=== PATIENT | male | born 1965 | race African-American/Black ===

== ENCOUNTER 2017-03-28 05:09 | Inpatient (IN) | payer SELFPAY ==
[~2017-03-28] VITALS: Ht 175.3 cm; Wt 91.6 kg
[2017-03-28 07:01] LABS: INR 1.1; PROTHROMBIN TIME 11.3 sec
[2017-03-28 07:05] LABS: BASOPHILS % 0.9 % (0.0-2.0); CARBON DIOXIDE 29 mEq/L (21-32); CHLORIDE 109 mEq/L (98-107); EOSINOPHILS % 1.9 % (0.0-5.0); HEMATOCRIT. 44.3 % (42.0-52.0); HEMOGLOBIN. 14.5 g/dL (14.0-18.0); LYMPHOCYTES % 33.9 % (20.0-50.0); MEAN CORPUSCULAR HEMOGLOBIN 28.7 pg (28.0-32.0); MEAN CORPUSCULAR VOLUME 87.8 fL (80.0-94.0); MEAN PLATELET VOLUME 8.4 fl (7.4-10.4); MONOCYTES % 6.3 % (2.0-8.0); PLATELET 207 x1000/uL (130-400); RED BLOOD CELL COUNT 5.04 mill/uL (4.7-6.1); RED CELL DISTRIBUTION WIDTH 14.6 % (11.6-14.6)
[2017-03-28 07:10] LABS: TROPONIN I 0.09 ng/mL (0.00-0.04)
[2017-03-28] MEDS ORDERED: FUROSEMIDE 40MG/4ML VIAL IVP ONE (07:15)
[2017-03-28] MEDS ORDERED: NITROGLYCERIN OINT 1GM/INCH UDPKT TD ONE (07:15)
[2017-03-28] MEDS ORDERED: ASPIRIN 325MG TABLET PO ONE (08:00)
[2017-03-28] MEDS ORDERED: MAGNESIUM HYDROXIDE 400MG/5ML 30ML UDC PO PRN (09:00)
[2017-03-28] MEDS ORDERED: MAGNESIUM/ALUMINUM HYDROXIDE/SIMETHICONE 30ML UDC PO PRN (09:00)
[2017-03-28] MEDS ORDERED: ENOXAPARIN 40MG/0.4ML SYR SUBCUT SCH (09:00)
[2017-03-28] MEDS ORDERED: ONDANSETRON HCL 4MG/2ML VIAL IV PRN (09:00)
[2017-03-28] MEDS ORDERED: DIPHENHYDRAMINE 50MG/ML VIAL IV PRN (09:00)
[2017-03-28] MEDS ORDERED: ACETAMINOPHEN 325MG TABLET PO PRN (09:00)
[2017-03-28] MEDS ORDERED: CLONIDINE 0.1MG TABLET PO PRN (09:00)
[2017-03-28] MEDS ORDERED: IPRATROPIUM/ALBUTEROL 0.5-3(2.5)MG/3ML NEB INH PRN (09:00)
[2017-03-28 12:00] VITALS: BP 134/109
[2017-03-28 12:05] VITALS: BP 134/109
[2017-03-28] MEDS ORDERED: BENAZEPRIL 20MG TABLET PO SCH (13:00)
[2017-03-28] MEDS: POTASSIUM CHLORIDE 20MEQ TABLET SR PO SCH ×2 (13:47→20:35)
[2017-03-28] MEDS: SODIUM CHLORIDE 0.9% INJ 3ML FLUSH IVF SCH ×2 (13:48→20:35)
[2017-03-28] MEDS: ENOXAPARIN 30MG/0.3ML SYR SUBCUT SCH ×2 (13:48→23:49)
[2017-03-28] MEDS: AMLODIPINE 10MG TABLET PO SCH (13:48)
[2017-03-28] MEDS ORDERED: POTASSIUM CHLORIDE 20MEQ TABLET SR PO NR (15:15)
[2017-03-28 16:00] VITALS: BP 139/112
[2017-03-28] MEDS: FUROSEMIDE 40MG/4ML VIAL IVP SCH (16:26)
[2017-03-28] MEDS: DOCUSATE SODIUM 100MG CAPSULE PO SCH (16:26)
[2017-03-28 19:54] LABS: *AMPHETAMINES SCREEN URINE NEGATIVE (NEGATIVE); *BARBITURATES SCREEN URINE NEGATIVE (NEGATIVE); *BENZODIAZEPINES SCREEN URINE NEGATIVE (NEGATIVE); *COCAINE SCREEN URINE NEGATIVE (NEGATIVE); CANNABINOID URINE SCREEN NEGATIVE (NEGATIVE); METHADONE URINE SCREEN NEGATIVE (NEGATIVE); OPIATES URINE SCREEN NEGATIVE (NEGATIVE); PHENCYCLIDINE URINE SCREEN NEGATIVE (NEGATIVE)
[2017-03-28 20:00] VITALS: BP 140/104
[2017-03-28] MEDS: LOSARTAN POTASSIUM 25 MG TABLET PO SCH (20:35)
[2017-03-29] VITALS: BP_SYST 126; BP_SYST 130; BP_DIAS 107; BP_DIAS 95
[2017-03-29 04:00] VITALS: BP_SYST 126; BP_SYST 146; BP_DIAS 109; BP_DIAS 89
[2017-03-29] MEDS: SODIUM CHLORIDE 0.9% INJ 3ML FLUSH IVF SCH ×3 (06:00→21:54)
[2017-03-29 06:37] LABS: CARBON DIOXIDE 30 mEq/L (21-32); CHLORIDE 108 mEq/L (98-107); CREATINE KINASE 53 IU/L (39-308); LDL CHOLESTEROL 72 mg/dL (5-100)
[2017-03-29 06:45] LABS: CREATINE KINASE MB FRACTION 1.1 ng/mL (0.5-3.6); HDL CHOLESTEROL 28 mg/dL (40-59); TROPONIN I 0.06 ng/mL (0.00-0.04)
[2017-03-29 08:00] VITALS: BP 142/111
[2017-03-29] MEDS: ENOXAPARIN 30MG/0.3ML SYR SUBCUT SCH (08:29)
[2017-03-29] MEDS: AMLODIPINE 10MG TABLET PO SCH (08:29)
[2017-03-29] MEDS: DOCUSATE SODIUM 100MG CAPSULE PO SCH ×2 (08:29→16:35)
[2017-03-29] MEDS: LOSARTAN POTASSIUM 25 MG TABLET PO SCH (08:29)
[2017-03-29] MEDS: POTASSIUM CHLORIDE 20MEQ TABLET SR PO SCH ×2 (08:29→16:35)
[2017-03-29] MEDS: FUROSEMIDE 40MG/4ML VIAL IVP SCH ×2 (08:31→16:35)
[2017-03-29 12:05] VITALS: BP 153/108
[2017-03-29] MEDS ORDERED: HYDRALAZINE 20MG/ML VIAL IV PRN (14:30)
[2017-03-29 16:00] VITALS: BP 128/88
[2017-03-29] MEDS: CARVEDILOL 3.125 MG TABLET PO SCH ×2 (16:35→20:56)
[2017-03-29 20:00] VITALS: BP 136/103
[2017-03-29] MEDS: LOSARTAN POTASSIUM 50 MG TABLET PO SCH (20:57)
[2017-03-29] MEDS: ISOSORB DINIT/HYDRALAZINE HCL 20/37.5MG TABLET PO SCH (21:53)
[2017-03-30] VITALS: BP 117/74
[2017-03-30 04:00] VITALS: BP 130/94
[2017-03-30] MEDS: ISOSORB DINIT/HYDRALAZINE HCL 20/37.5MG TABLET PO SCH ×2 (05:09→13:34)
[2017-03-30] MEDS: SODIUM CHLORIDE 0.9% INJ 3ML FLUSH IVF SCH ×2 (05:09→13:34)
[2017-03-30 05:52] LABS: BASOPHILS % 0.2 % (0.0-2.0); EOSINOPHILS % 1.9 % (0.0-5.0); HEMATOCRIT. 43.8 % (42.0-52.0); HEMOGLOBIN. 14.3 g/dL (14.0-18.0); LYMPHOCYTES % 39.8 % (20.0-50.0); MEAN CORPUSCULAR HEMOGLOBIN 28.6 pg (28.0-32.0); MEAN CORPUSCULAR VOLUME 87.6 fL (80.0-94.0); MEAN PLATELET VOLUME 8.8 fl (7.4-10.4); MONOCYTES % 7.1 % (2.0-8.0); PLATELET 215 x1000/uL (130-400); RED CELL DISTRIBUTION WIDTH 14.1 % (11.6-14.6)
[2017-03-30 06:32] LABS: CARBON DIOXIDE 33 mEq/L (21-32); CHLORIDE 104 mEq/L (98-107)
[2017-03-30 08:00] VITALS: BP 143/112
[2017-03-30] MEDS: FUROSEMIDE 40MG/4ML VIAL IVP SCH (08:17)
[2017-03-30] MEDS: POTASSIUM CHLORIDE 20MEQ TABLET SR PO SCH (08:18)
[2017-03-30] MEDS: LOSARTAN POTASSIUM 50 MG TABLET PO SCH (08:18)
[2017-03-30] MEDS: DOCUSATE SODIUM 100MG CAPSULE PO SCH (08:18)
[2017-03-30] MEDS: CARVEDILOL 3.125 MG TABLET PO SCH (08:18)
[2017-03-30] MEDS: AMLODIPINE 10MG TABLET PO SCH (08:18)
[2017-03-30] MEDS ORDERED: ENOXAPARIN 40MG/0.4ML SYR SUBCUT SCH (09:00)
[2017-03-30 11:30] VITALS: BP 123/83
[2017-03-30 13:45] VITALS: BP 123/83
== END 2017-03-30 14:40 | disposition home or self-care (01) | DRG 194 ==
LOC: ER 07:43 → 7WST 08:16 → EDBEDREQ 08:18 → ENRESERV 11:12
PROVIDERS: ADMIT Internal Medicine; ATTEND Internal Medicine
DX: I11.0 Hypertensive heart disease with heart failure (principal); E44.0 Moderate protein-calorie malnutrition; I24.9 Acute ischemic heart disease, unspecified; I31.3 Pericardial effusion (noninflammatory); E87.6 Hypokalemia; F17.200 Nicotine dependence, unspecified, uncomplicated; I50.23 Acute on chronic systolic (congestive) heart failure; F12.90 Cannabis use, unspecified, uncomplicated; E66.9 Obesity, unspecified; I34.0 Nonrheumatic mitral (valve) insufficiency; Z82.49 Family history of ischemic heart disease and other diseases of the circulatory system; Z91.19 Patient's noncompliance with other medical treatment and regimen; Z68.29 Body mass index [BMI] 29.0-29.9, adult
CPT/HCPCS: 36415; 71010; 80048; 80053; 80061; 80305; 82550; 82553; 83690; 83735; 83880; 84443; 84484; 85025; 85379; 85610; 93005; 93306; 93970; 96374; 99285; J1650; J1940

== ENCOUNTER 2018-12-26 18:40 | Inpatient (IN) | payer MEDICAID ==
[~2018-12-26] VITALS: Ht 177.8 cm; Wt 105.3 kg
[2018-12-26 23:16] LABS: BASOPHILS % 0.5 % (0.0-2.0); EOSINOPHILS % 0.1 % (0.0-5.0); HEMATOCRIT. 43.9 % (42.0-52.0); HEMOGLOBIN. 14.4 g/dL (14.0-18.0); LYMPHOCYTES % 13.7 % (20.0-50.0); MEAN CORPUSCULAR HEMOGLOBIN 28.2 pg (28.0-32.0); NEUTROPHILS % 80.7 % (40.0-76.0); PLATELET 205 x1000/uL (130-400); RED CELL DISTRIBUTION WIDTH 15.9 % (11.6-14.6)
[2018-12-26 23:19] LABS: CHLORIDE 103 mEq/L (98-107)
[2018-12-26] MEDS ORDERED: FUROSEMIDE 40MG/4ML VIAL IV ONE (23:45)
[2018-12-26] MEDS ORDERED: ASPIRIN 81MG TABLET PO ONE (23:45)
[2018-12-26] MEDS ORDERED: ENOXAPARIN 100MG/ML SYR SUBCUT ONE (23:45)
[2018-12-27] MEDS ORDERED: LORAZEPAM 2MG/ML CPJ IV PRN (00:15)
[2018-12-27] MEDS ORDERED: IPRATROPIUM/ALBUTEROL 0.5-3(2.5)MG/3ML NEB INH PRN (00:15)
[2018-12-27] MEDS ORDERED: MAGNESIUM/ALUMINUM HYDROXIDE/SIMETHICONE 30ML UDC PO PRN (00:15)
[2018-12-27] MEDS ORDERED: DIPHENHYDRAMINE 50MG/ML VIAL IV PRN (00:15)
[2018-12-27] MEDS ORDERED: ACETAMINOPHEN 325MG TABLET PO PRN (00:15)
[2018-12-27] MEDS ORDERED: DOCUSATE SODIUM 100MG CAPSULE PO PRN (00:15)
[2018-12-27] MEDS ORDERED: NA PHOS,M-B/NA PHOS,DI-BA ENEMA 118ML PR PRN (00:15)
[2018-12-27] MEDS ORDERED: MORPHINE SULFATE 4 MG/ML CPJ (NOT FOR IM USE) IV PRN (00:15)
[2018-12-27] MEDS ORDERED: ONDANSETRON HCL 4MG/2ML INJ IV PRN (00:15)
[2018-12-27] MEDS ORDERED: HYDROCODONE/ACETAMINOPHEN 5/325MG TABLET PO PRN (00:15)
[2018-12-27] MEDS ORDERED: GUAIFENESIN 200MG/10ML SUGAR FREE UDC PO PRN (00:15)
[2018-12-27] MEDS ORDERED: CLONIDINE 0.1MG TABLET PO PRN (00:15)
[2018-12-27 07:40] LABS: CHLORIDE 104 mEq/L (98-107)
[2018-12-27 08:00] VITALS: BP 127/90
[2018-12-27 08:15] VITALS: BP 127/90
[2018-12-27] MEDS: ENOXAPARIN 30MG/0.3ML SYR SUBCUT SCH ×2 (09:00→20:07)
[2018-12-27] MEDS: ASPIRIN 81MG EC TABLET PO SCH (09:44)
[2018-12-27] MEDS: FUROSEMIDE 40MG/4ML VIAL IV SCH ×2 (09:44→17:48)
[2018-12-27 12:00] VITALS: BP 142/94
[2018-12-27 16:00] VITALS: BP 143/105
[2018-12-27] MEDS ORDERED: CARV25TA47 PO (16:15)
[2018-12-27] MEDS ORDERED: AMLO10TA80 PO (16:16)
[2018-12-27] MEDS ORDERED: ASPI-1159 PO (16:16)
[2018-12-27] MEDS ORDERED: FURO80TA87 PO (16:17)
[2018-12-27 20:28] VITALS: BP 121/77
[2018-12-28] VITALS: BP 133/85
[2018-12-28 04:00] VITALS: BP 130/92
[2018-12-28] MEDS: IPRATROPIUM/ALBUTEROL 0.5-3(2.5)MG/3ML NEB HHN SCH ×2 (04:23→07:50)
[2018-12-28 06:30] LABS: CHLORIDE 101 mEq/L (98-107)
[2018-12-28 06:35] LABS: BASOPHILS % 0.3 % (0.0-2.0); EOSINOPHILS % 0.5 % (0.0-5.0); HEMATOCRIT. 41.4 % (42.0-52.0); HEMOGLOBIN. 13.6 g/dL (14.0-18.0); LYMPHOCYTES % 14.4 % (20.0-50.0); MEAN CORPUSCULAR HEMOGLOBIN 27.9 pg (28.0-32.0); MEAN PLATELET VOLUME 9.3 fl (7.4-10.4); MONOCYTES % 7.9 % (2.0-8.0); NEUTROPHILS % 76.9 % (40.0-76.0); PLATELET 211 x1000/uL (130-400); RED BLOOD CELL COUNT 4.87 mill/uL (4.7-6.1); RED CELL DISTRIBUTION WIDTH 15.4 % (11.6-14.6)
[2018-12-28] MEDS: FUROSEMIDE 40MG/4ML VIAL IV SCH (06:38)
[2018-12-28 06:41] LABS: LDL CHOLESTEROL 68 mg/dL (5-100)
[2018-12-28 06:43] LABS: HDL CHOLESTEROL 30 mg/dL (40-59); T4 FREE 1.28 ng/dL (0.76-1.46)
[2018-12-28 07:44] VITALS: BP 142/94
[2018-12-28] MEDS ORDERED: IOHEXOL-350 100 ML BOTTLE ONE (08:24)
[2018-12-28] MEDS: ENOXAPARIN 30MG/0.3ML SYR SUBCUT SCH (09:00)
[2018-12-28] MEDS: ASPIRIN 81MG EC TABLET PO SCH (09:16)
[2018-12-28 09:52] VITALS: BP 142/94
== END 2018-12-28 11:30 | disposition home or self-care (01) | DRG 194 ==
LOC: ER 18:40 → 6WST 12-27 00:11 → EDBEDREQDT 12-27 00:34 → EDBEDREQTM 12-27 00:34 → EDBEDREQ 12-27 00:34 → ENRESERV 12-27 08:00
PROVIDERS: ADMIT Internal Medicine; ATTEND Internal Medicine
DX: I11.0 Hypertensive heart disease with heart failure (principal); J96.00 Acute respiratory failure, unspecified whether with hypoxia or hypercapnia; J44.1 Chronic obstructive pulmonary disease with (acute) exacerbation; F17.210 Nicotine dependence, cigarettes, uncomplicated; I25.10 Atherosclerotic heart disease of native coronary artery without angina pectoris; I50.9 Heart failure, unspecified; K76.9 Liver disease, unspecified; N28.9 Disorder of kidney and ureter, unspecified; Z79.82 Long term (current) use of aspirin; Z79.899 Other long term (current) drug therapy
CPT/HCPCS: 36415; 71045; 71275; 80048; 80061; 83880; 84439; 84443; 84484; 93005; 96374; 96375; 99285; J1650; J1940; J7620; Q9967

== ENCOUNTER 2019-05-26 17:44 | Inpatient (IN) | payer MEDICAID ==
[~2019-05-26] VITALS: Ht 177.8 cm; Wt 98.9 kg
[~2019-05-26 17:44] MED LIST: AMLO10TA80 PO; ASPI-1393 PO; CARV25TA47 PO; FURO80TA87 PO
[2019-05-26] MEDS ORDERED: ATOR10TA PO (18:02)
[2019-05-26] MEDS ORDERED: CLONIDINE 0.1MG TABLET PO ONE (22:00)
[2019-05-26] MEDS ORDERED: FUROSEMIDE 40MG/4ML VIAL IV ONE (22:00)
[2019-05-26] MEDS ORDERED: ASPIRIN 81MG TABLET PO ONE (22:00)
[2019-05-26 22:56] LABS: BASOPHILS % 0.3 % (0.0-2.0); EOSINOPHILS % 0.7 % (0.0-5.0); HEMATOCRIT. 46.3 % (42.0-52.0); HEMOGLOBIN. 15.1 g/dL (14.0-18.0); MEAN CORPUSCULAR HEMOGLOBIN 29.1 pg (28.0-32.0); MEAN CORPUSCULAR VOLUME 89.3 fL (80.0-94.0); MEAN PLATELET VOLUME 9.9 fl (7.4-10.4); MONOCYTES % 7.9 % (2.0-8.0); NEUTROPHILS % 48.1 % (40.0-76.0); PLATELET 181 x1000/uL (130-400); RED BLOOD CELL COUNT 5.18 mill/uL (4.7-6.1); RED CELL DISTRIBUTION WIDTH 14.9 % (11.6-14.6)
[2019-05-26 22:58] LABS: CHLORIDE 107 mEq/L (98-107)
[2019-05-26 23:00] LABS: PARTIAL THROMBOPLASTIN TIME 27.4 sec (23.4-31.0); PROTHROMBIN TIME 10.7 sec (9.6-11.0)
[2019-05-26 23:01] LABS: ETHANOL BLOOD < 10 mg/dL
[2019-05-26] MEDS ORDERED: CLONIDINE 0.2MG TABLET PO ONE (23:45)
[2019-05-27] MEDS ORDERED: HYDRALAZINE 20MG/ML VIAL IV ONE (01:15)
[2019-05-27 03:30] VITALS: BP 142/94
[2019-05-27] MEDS ORDERED: MAGNESIUM/ALUMINUM HYDROXIDE/SIMETHICONE 30ML UDC PO PRN ×2 (03:45→04:00)
[2019-05-27] MEDS ORDERED: ACETAMINOPHEN 325MG TABLET PO PRN ×2 (03:45→04:00)
[2019-05-27] MEDS ORDERED: GUAIFENESIN 200MG/10ML SUGAR FREE UDC PO PRN ×2 (03:45→04:00)
[2019-05-27] MEDS ORDERED: DIPHENHYDRAMINE 50MG/ML VIAL IV PRN ×2 (03:45→04:00)
[2019-05-27] MEDS ORDERED: ENOXAPARIN 40MG/0.4ML SYR SUBCUT SCH ×2 (03:45→04:00)
[2019-05-27] MEDS ORDERED: ONDANSETRON HCL 4MG/2ML INJ IV PRN ×2 (03:45→04:00)
[2019-05-27] MEDS ORDERED: CLONIDINE 0.1MG TABLET PO PRN (03:45)
[2019-05-27] MEDS ORDERED: HYDRALAZINE 20MG/ML VIAL IV PRN (04:00)
[2019-05-27] MEDS ORDERED: SODIUM CHLORIDE 0.9% 1,000 ML IV SCH (05:00)
[2019-05-27] MEDS: SODIUM CHLORIDE 0.9% INJ 3ML FLUSH IVF SCH ×3 (07:05→21:21)
[2019-05-27 08:00] VITALS: BP 161/125
[2019-05-27] MEDS: FUROSEMIDE 40MG/4ML VIAL IVP SCH ×2 (08:16→21:19)
[2019-05-27] MEDS: POTASSIUM CHLORIDE 20MEQ TABLET SR PO SCH (08:17)
[2019-05-27] MEDS: ENOXAPARIN 30MG/0.3ML SYR SUBCUT SCH ×4 (08:17→21:20)
[2019-05-27] MEDS: ASPIRIN 81MG EC TABLET PO SCH (08:18)
[2019-05-27] MEDS ORDERED: LOSARTAN POTASSIUM 50 MG TABLET PO SCH (09:00)
[2019-05-27] MEDS ORDERED: AMLODIPINE 10MG TABLET PO SCH (09:00)
[2019-05-27] MEDS ORDERED: CARVEDILOL 12.5MG TABLET PO SCH (09:00)
[2019-05-27 11:34] VITALS: BP 140/89
[2019-05-27] MEDS: SPIRONOLACTONE 25MG TABLET PO SCH (12:53)
[2019-05-27 15:40] VITALS: BP 137/98
[2019-05-27 15:47] LABS: CREATINE KINASE MB FRACTION 2.1 ng/mL (0.5-3.6)
[2019-05-27 20:00] VITALS: BP 146/99
[2019-05-27] MEDS: ATORVASTATIN CALCIUM 20MG TABLET PO SCH (21:19)
[2019-05-27] MEDS: CARVEDILOL 12.5MG TABLET PO SCH (21:19)
[2019-05-28] VITALS (7 sets, daily range): BP systolic 117–171; BP diastolic 76–103
[2019-05-28] MEDS: SODIUM CHLORIDE 0.9% INJ 3ML FLUSH IVF SCH ×3 (05:24→22:49)
[2019-05-28] MEDS: ENOXAPARIN 30MG/0.3ML SYR SUBCUT SCH ×2 (09:00→20:47)
[2019-05-28] MEDS: SPIRONOLACTONE 25MG TABLET PO SCH (09:17)
[2019-05-28] MEDS: ASPIRIN 81MG EC TABLET PO SCH (09:17)
[2019-05-28] MEDS: POTASSIUM CHLORIDE 20MEQ TABLET SR PO SCH (09:17)
[2019-05-28] MEDS: FUROSEMIDE 40MG/4ML VIAL IVP SCH ×2 (09:17→20:46)
[2019-05-28] MEDS: LOSARTAN POTASSIUM 100 MG TABLET PO SCH (09:17)
[2019-05-28] MEDS: CARVEDILOL 12.5MG TABLET PO SCH ×2 (09:18→20:47)
[2019-05-28] MEDS ORDERED: ATOR40TA70 MT (20:28)
[2019-05-28] MEDS ORDERED: SPIR25TA MT (20:29)
[2019-05-28] MEDS: ATORVASTATIN CALCIUM 20MG TABLET PO SCH (20:46)
[2019-05-29] VITALS: BP 124/84
[2019-05-29 04:00] VITALS: BP 134/84
[2019-05-29] MEDS: SODIUM CHLORIDE 0.9% INJ 3ML FLUSH IVF SCH (04:59)
[2019-05-29 07:23] LABS: CHLORIDE 104 mEq/L (98-107)
[2019-05-29 07:38] LABS: PHOSPHORUS 3.5 mg/dL (2.5-4.9)
[2019-05-29 08:00] VITALS: BP 159/111
[2019-05-29] MEDS: SPIRONOLACTONE 25MG TABLET PO SCH (08:44)
[2019-05-29] MEDS: ASPIRIN 81MG EC TABLET PO SCH (08:44)
[2019-05-29] MEDS: LOSARTAN POTASSIUM 100 MG TABLET PO SCH (08:44)
[2019-05-29] MEDS: CARVEDILOL 12.5MG TABLET PO SCH (08:47)
[2019-05-29] MEDS: FUROSEMIDE 40MG/4ML VIAL IVP SCH (08:53)
[2019-05-29] MEDS: ENOXAPARIN 30MG/0.3ML SYR SUBCUT SCH (08:53)
[2019-05-29] MEDS ORDERED: POTASSIUM CHLORIDE 10MEQ TABLET SR PO SCH (09:00)
== END 2019-05-29 08:54 | disposition home or self-care (01) | DRG 194 ==
LOC: ER 17:44 → 8WST 05-27 00:21 → EDBEDREQDT 05-27 00:28 → EDBEDREQTM 05-27 00:28 → EDBEDREQ 05-27 00:28 → ENRESERV 05-27 03:11
PROVIDERS: ADMIT Internal Medicine; ATTEND Internal Medicine
DX: I11.0 Hypertensive heart disease with heart failure (principal); I42.9 Cardiomyopathy, unspecified; E66.9 Obesity, unspecified; R94.31 Abnormal electrocardiogram [ECG] [EKG]; I50.23 Acute on chronic systolic (congestive) heart failure; F17.200 Nicotine dependence, unspecified, uncomplicated; J44.9 Chronic obstructive pulmonary disease, unspecified; E78.00 Pure hypercholesterolemia, unspecified; Z91.19 Patient's noncompliance with other medical treatment and regimen; Z68.31 Body mass index [BMI] 31.0-31.9, adult
CPT/HCPCS: 36415; 71045; 80048; 80320; 82550; 82553; 83735; 83880; 84100; 84484; 84550; 93005; 93306; 93970; 96374; 99285; J0360; J1650; J1940; G0480

== ENCOUNTER 2019-10-14 18:02 | Emergency (ER) | payer MEDICAID ==
[~2019-10-14] VITALS: Ht 175.3 cm; Wt 99.0 kg
[~2019-10-14 18:02] MED LIST changes: -ASPI-1393 PO; +ASPI-1497 PO; +ATOR40TA70 MT; +SPIR25TA MT
[2019-10-15 00:07] LABS: BASOPHILS % 1.6 % (0.0-2.0); EOSINOPHILS % 1.2 % (0.0-5.0); HEMOGLOBIN. 15.5 g/dL (14.0-18.0); LYMPHOCYTES % 38.6 % (20.0-50.0); MEAN CORPUSCULAR HEMOGLOBIN 29.2 pg (28.0-32.0); MEAN CORPUSCULAR VOLUME 90.5 fL (80.0-94.0); MEAN PLATELET VOLUME 8.9 fl (7.4-10.4); MONOCYTES % 6.8 % (2.0-8.0); NEUTROPHILS % 51.8 % (40.0-76.0); PLATELET 200 x1000/uL (130-400); RED CELL DISTRIBUTION WIDTH 14.1 % (11.6-14.6)
[2019-10-15 00:14] LABS: CHLORIDE 107 mEq/L (98-107)
[2019-10-15] MEDS ORDERED: ALBUTEROL (0.083%) 2.5MG/3ML NEB HHN STA (01:35)
[2019-10-15 02:36] VITALS: BP 194/110
[2019-10-15] MEDS ORDERED: CLONIDINE 0.2MG TABLET PO ONE (02:45)
== END 2019-10-15 03:00 | disposition home or self-care (01) ==
LOC: ER 18:02
DX: I11.0 Hypertensive heart disease with heart failure (principal); I50.9 Heart failure, unspecified; Z79.82 Long term (current) use of aspirin
CPT/HCPCS: 36415; 71045; 80053; 83880; 84484; 85025; 93005; 94640; 99284; J7611; Z7610